=== PATIENT | female | born 1995 | race Hispanic/Latino ===

== ENCOUNTER → 2018-11-15 | Outpatient (CLI) | payer OTHER ==
[~2018-11-15] VITALS: Ht 17.8 cm; Wt 149.7 kg
--- NOTE | 2018-11-15 09:43 | NUR ---
SAVANNAH Bariatric Consult Visit / Pt Seeking weight loss surgery for improved quality of life. Pt with multiple attempts at wt loss in the past through calorie-restricted dieting and meal planning. Past attempts with minimal wt loss and wt re-gain. Pt states this is the highest adult wt and needs assistance through procedure. Pt also desires wt loss for prevention of chronic disease, as pt with many family members with chronic diseases caused by obesity. Pt reports being overweight during adolescent years. Pt saw Dietitian during these years and lost 15 lbs, however wt was re-gained. Pt also lost wt of 20 lbs Freshman year of high school by eating healthier foods, but wt was re-gained by graduation. This past May, Pt was at 320 lbs, lost wt but then re-gained with and addition of 10 pounds within past 4-5 months. Pt looks forward to making long-lasting lifestyle modification in addition to procedure to obtain achievable and lasting wt loss goal. Pt postprocedure gradual wt loss goal of 50-100lbs. Pt with strong support system at home with parents and sister, and even cousins who will join Pt in meal planning and healthy eating. Pt current challenges include feelings of depression and discouragement due to wt gain, as well as time-restrictive work schedule that leads to eating fast food and not preparing healthful meals at home. Pt does not currently have a fitness plan and Pt eats high high energy, low nutrient dense diet. RD provided Healthy My Plate nutrition recommendations to promote healthy meal planning and encourage improved healthful intake. RD emphasized importance of developing long-lasting, healthful lifestyle habits Pt is able to maintain. Pt has set goals to meet for the upcoming month to review during follow up visit: 1) Getting more physically active 2) Eating less fast food 3) Drinking more water. Addendum: 11/15/18 at [address] Amended: Links added.
== END | disposition home or self-care (01) ==
LOC: DTH 08:25
PROVIDERS: ATTEND Surgery
DX: E11.9 Type 2 diabetes mellitus without complications (principal); E66.8 Other obesity
CPT/HCPCS: 97802

== ENCOUNTER 2018-11-29 08:55 | Day surgery (SDC) | payer OTHER ==
[~2018-11-29] VITALS: Ht 170.2 cm; Wt 149.7 kg
[~2018-11-29 08:55] MED LIST: SODIUM CHLORIDE 0.9% 1000ML 1,000 ML IV ONE
[2018-11-29 09:31] VITALS: BP 118/89
[2018-11-29] MEDS ORDERED: PROPOFOL 10 MG/ML 20ML VIAL IV ONE (13:29)
[2018-11-29 13:44] VITALS: BP 96/37
[2018-11-29 13:49] VITALS: BP 107/64
[2018-11-29 13:53] VITALS: BP 107/64
[2018-11-29 14:00] VITALS: BP 110/71
== END 2018-11-29 14:15 | disposition home or self-care (01) ==
LOC: DAH 08:55 → ENDO 08:55
PROVIDERS: ATTEND Surgery
DX: K21.9 Gastro-esophageal reflux disease without esophagitis (principal); E66.01 Morbid (severe) obesity due to excess calories; Z90.49 Acquired absence of other specified parts of digestive tract; Z68.43 Body mass index [BMI] 50.0-59.9, adult
CPT/HCPCS: 36415; 43235; 84703; A4215; A4221; A4222; A4223; A4606; A4620; A4663; J2704; J7030

== ENCOUNTER → 2018-12-13 | Outpatient (CLI) | payer OTHER ==
--- NOTE | 2018-12-13 10:52 | NUR ---
BARIATRIC FOLLOW UP VISIT 2/3 TIME OF VISIT: 9:00AM - 9:30AM Pt has met previously set goals of incorporating physical exercise, eating less fast food, and drinking more water. Pt initiated working this week by obtaining gym membership at [employer] and attended two exercise classes (Cycling, Thaddeus) and one session of training on the eliptical, each session 45minutes of moderate-high intensity aerobics. Pt plans to exercise on a daily basis. Pt also did not eat fast food for the entire month. Pt mentions there was a in the family and therefore may have had a higher caloric intake. And finally, Pt incorporated drinking more water by switching out coke beverages for water instead. Pt main obstacle during the month was having the of her grandfather, with increased food around, no time to get away to work out, as well as grieving over the . Pt however, has recovered and is motivated to continue with plans to achieve lifestyle modification goals as well as proceed with her procedure. SAVANNAH discussed the importance of removing caffeine and added sugar from diet. SAVNANAH also commended Pt for eating out less and encouraged to continue the trend, but also discussed alternatives in case Pt does go to fast food restaurants in the future. Pt has set goals to work on in the upcoming month: 1) More physical activity 2) Eating Less sugar 3) Eating Healthier SAVANNAH has provided contact information and encouraged Pt to notify as questions or concerns arise. Addendum: 12/13/18 at [address] Amended: Links added.
== END | disposition home or self-care (01) ==
LOC: DTH 08:59
PROVIDERS: ATTEND Surgery
DX: E66.09 Other obesity due to excess calories (principal); E11.9 Type 2 diabetes mellitus without complications
CPT/HCPCS: 97803

== ENCOUNTER → 2019-01-08 | Outpatient (CLI) | payer OTHER ==
--- NOTE | 2019-01-08 12:16 | NUR ---
BARIATRIC PRE-OP DIET EDUCATION Visit: [id number] provided Bariatric Pre-Op and Post-Op diet education. RD reviewed Bariatric Nutrition Guidelines with Pt. RD reviewed Bariatric Diet Phases I-V with Pt, with Emphasis on Pre- & Post-Op diet, importance of vitamin supplementation, and appropriate nutrient intake as diet &tolerance progresses. Pt's mother was present. Pt with questions, RD answered all questions. RD provided contact information for Pt to contact as questions or concerns arise. RD to follow up Post- Procedure.
== END | disposition home or self-care (01) ==
LOC: DTH 09:14
PROVIDERS: ATTEND Surgery
DX: E66.01 Morbid (severe) obesity due to excess calories (principal); E11.9 Type 2 diabetes mellitus without complications
CPT/HCPCS: 97803

== ENCOUNTER 2019-01-22 08:00 | Inpatient (IN) | payer OTHER ==
[2019-01-16 16:31] VITALS: BP 138/60
[2019-01-16 16:54] LABS: BASOPHILS % (AUTO) 0.3 % (0.0-5.0); EOSINOPHILS % (AUTO) 1.2 % (0.0-8.0); HEMATOCRIT 41.7 % (36-48); LYMPHOCYTES % (AUTO) 18.7 % (21.0-51.0); MEAN CORPUSCULAR HGB CONC 33.9 g/dL (32.0-36.0); MEAN CORPUSCULAR VOLUME 85.6 fL (80-100); NEUTROPHILS % (AUTO) 72.8 % (40.0-77.0); NUCLEATED RED BLOOD CELLS 0.1 % (0.0-0.19); PLATELET COUNT (AUTO) 201 K/uL (130-400); RED BLOOD CELL COUNT(AUTO) 4.86 MIL/uL (4.00-5.50); RED CELL DISTRIBUTION WIDTH 13.2 % (11.0-15.5); WHITE BLOOD COUNT (AUTO) 6.3 K/uL (4.8-10.8)
[2019-01-16 17:12] LABS: INR 0.95 (0.85-1.15); PARTIAL THROMBOPLASTIN TIME 27.9 SEC (26.3-35.5)
[2019-01-16 17:19] LABS: CREATININE 0.8 mg/dL (0.5-1.5); POTASSIUM 3.9 mmol/L (3.5-5.1)
[2019-01-19] MEDS: CEFAZOLIN SODIUM 1 GM VIAL IVP SCH (17:00)
[2019-01-20] MEDS: CEFAZOLIN SODIUM 1 GM VIAL IVP SCH (17:00)
[2019-01-21] MEDS: CEFAZOLIN SODIUM 1 GM VIAL IVP SCH (17:00)
[~2019-01-22] VITALS: Ht 170.2 cm; Wt 145.8 kg
[2019-01-22] VITALS (23 sets, daily range): BP systolic 112–174; BP diastolic 51–99
[2019-01-22] MEDS: SODIUM CHLORIDE 0.9% 1000ML 1,000 ML IV SCH ×2 (09:40→09:43)
[2019-01-22] MEDS ORDERED: LIDOCAINE PF 2% 5ML ABBOJECT ONE (09:42)
[2019-01-22] MEDS ORDERED: DEXAMETHASONE SOD PHOSPHATE 10MG/ML 1ML VIAL ONE (09:42)
[2019-01-22] MEDS ORDERED: SUCCINYLCHOLINE 200MG/10ML SYR ONE (09:42)
[2019-01-22] MEDS ORDERED: ONDANSETRON HCL 4 MG/2 ML VIAL ONE (09:42)
[2019-01-22] MEDS ORDERED: NEOSTIGMINE 5MG/5ML SYR IV ONE (09:43)
[2019-01-22] MEDS ORDERED: FENTANYL CITRATE PF 50 MCG/1 ML 2ML VIAL ONE ×2 (09:43→10:31)
[2019-01-22] MEDS ORDERED: ROCURONIUM 10MG/1ML SYR 10 MG/ML ML ONE (09:43)
[2019-01-22] MEDS ORDERED: MIDAZOLAM HCL 1 MG/ML 2ML VIAL ONE (09:43)
[2019-01-22] MEDS ORDERED: GLYCOPYRROLATE 1 MG/5 ML SYRINGE ONE (09:43)
[2019-01-22] MEDS ORDERED: PROPOFOL 10 MG/ML 20ML VIAL IV ONE ×3 (09:43→10:44)
[2019-01-22] MEDS: CEFAZOLIN SODIUM 1 GM VIAL IVP SCH ×2 (09:45→17:00)
[2019-01-22] MEDS ORDERED: BUPIVACAINE/PF 0.5% 30ML VIAL ONE (10:28)
[2019-01-22] MEDS ORDERED: KETOROLAC TROMETHAMINE 30MG/ML IM PRN (11:00)
[2019-01-22] MEDS ORDERED: IPRATROPIUM/ALBUTEROL SULFATE 3 ML SOLUTION IH ONE (11:27)
[2019-01-22] MEDS ORDERED: RACEPINEPHRINE HCL 2.25% 0.5 ML NEB SOLN ONE (11:29)
[2019-01-22] MEDS ORDERED: MEPERIDINE-PF 25 MG/ML SYG ONE ×2 (11:41→11:49)
[2019-01-22] MEDS: ONDANSETRON HCL 4 MG/2 ML VIAL IVP PRN ×2 (12:56→19:46)
[2019-01-22] MEDS: LACTATED RINGERS 1000ML 1,000 ML IV SCH ×2 (12:56→19:56)
[2019-01-22] MEDS: FAMOTIDINE/PF 20 MG/2 ML VIAL IV SCH (19:45)
[2019-01-22] MEDS: ENOXAPARIN SODIUM 30 MG/0.3 ML SQ SCH (19:46)
[2019-01-22] MEDS: MORPHINE SULFATE 5 MG/ML VIAL IVP PRN (19:46)
[2019-01-23 03:33] VITALS: BP 140/89
[2019-01-23] MEDS: LACTATED RINGERS 1000ML 1,000 ML IV SCH (04:07)
[2019-01-23] MEDS: ONDANSETRON HCL 4 MG/2 ML VIAL IVP PRN (04:15)
[2019-01-23 04:16] LABS: BASOPHILS % (AUTO) 0.2 % (0.0-5.0); HEMATOCRIT 41.1 % (36-48); MEAN CORPUSCULAR HEMOGLOBIN 29.4 pg (27.0-33.0); MEAN CORPUSCULAR HGB CONC 34.7 g/dL (32.0-36.0); MEAN CORPUSCULAR VOLUME 84.8 fL (80-100); MONOCYTES % (AUTO) 6.7 % (3.0-13.0); NEUTROPHILS % (AUTO) 87.1 % (40.0-77.0); PLATELET COUNT (AUTO) 203 K/uL (130-400); RED BLOOD CELL COUNT(AUTO) 4.85 MIL/uL (4.00-5.50); RED CELL DISTRIBUTION WIDTH 13.2 % (11.0-15.5); WHITE BLOOD COUNT (AUTO) 10.3 K/uL (4.8-10.8)
[2019-01-23] MEDS: MORPHINE SULFATE 5 MG/ML VIAL IVP PRN (04:16)
[2019-01-23 04:36] LABS: CREATININE 0.8 mg/dL (0.5-1.5); POTASSIUM 3.9 mmol/L (3.5-5.1)
[2019-01-23 07:30] VITALS: BP 136/75
--- NOTE | 2019-01-23 08:40 | NUR ---
SPOKE WITH DR. THACKER VIA TELEPHONE. DR. THACKER STATES PATIENT IS OKAY FOR DISCHARGE ONCE SHE HAS BEEN UP AND MOVING AND WITHOUT COMPLAINTS. PATIENT IS AWARE OF POC PER DR. THACKER. STATE A PRESCRIPTION FOR TYLENOL+CODEINE IS IN CHART FOR PAIN MANAGEMENT AT HOME. PATIENT TO FOLLOW UP IN 1 WEEK
[2019-01-23] MEDS ORDERED: ACETAMINOPHEN-CODEINE ELIXIR 5 ML UDCUP PO PRN (09:45)
--- NOTE | 2019-01-23 09:50 | NUR ---
PATIENT AMBULATING IN HALLWAY. NO COMPLAINTS OF PAIN OR DIZZINESS. PATIENT REPORTS + FLATUS
[2019-01-23] MEDS: FAMOTIDINE/PF 20 MG/2 ML VIAL IV SCH (10:04)
[2019-01-23] MEDS: ENOXAPARIN SODIUM 30 MG/0.3 ML SQ SCH (10:04)
[2019-01-23 11:00] VITALS: BP 126/72
--- NOTE | 2019-01-23 13:55 | NUR ---
DISCHARGE INSTRUCTIONS READ AND EXPLAINED TO PATIENT. PT STATES SHE IS AWARE OF POC INSTRUCTED BY DR. THACKER. PRESCRIPTION FOR TYLENOL +CODEINE AND PROTONIX 40MG HANDED TO PATIENT. INCISION CARE REVIEWED WITH PATIENT. PT VOICED UNDERSTANDING OF ALL INSTRUCTIONS.
== END 2019-01-23 14:55 | disposition home or self-care (01) | DRG 621 ==
LOC: DAHIP 08:29 → 4CH 11:38 → EDSTATUS 16:49
PROVIDERS: ADMIT Surgery; ATTEND Surgery
PROC: 0DB64Z3 Excision of Stomach, Percutaneous Endoscopic Approach, Vertical (ICD-10-PCS; principal; 2019-01-22 09:40)
DX: E66.01 Morbid (severe) obesity due to excess calories (principal); K21.9 Gastro-esophageal reflux disease without esophagitis; Z90.49 Acquired absence of other specified parts of digestive tract; Z83.3 Family history of diabetes mellitus; Z68.43 Body mass index [BMI] 50.0-59.9, adult
CPT/HCPCS: 36415; 80048; 84703; 85025; 85610; 85730; 86850; 86900; 86901; 88307; 93005; 94640; 94760; G0378; J0330; J0690; J1100; J1650; J1885; J2001; J2175; J2250; J2270; J2405; J2704; J2710; J3010; J3490; J7030; J7120